=== PATIENT | female | born 1945 | race Caucasian/White ===

== ENCOUNTER 2018-03-17 01:26 | Emergency (ER) | payer MEDICARE, OTHER ==
[~2018-03-17] VITALS: Ht 604 cm; Wt 101.8 kg
[2018-03-17 13:24] VITALS: BP 148/76
== END 2018-03-17 13:29 | disposition home or self-care (01) ==
LOC: ER 01:27
DX: T85.618A Breakdown (mechanical) of other specified internal prosthetic devices, implants and grafts, initial encounter (principal); I48.91 Unspecified atrial fibrillation; Z99.81 Dependence on supplemental oxygen; Z85.9 Personal history of malignant neoplasm, unspecified; Z91.018 Allergy to other foods
CPT/HCPCS: 93005; 99283